=== PATIENT | male | born 1925 | race Caucasian/White ===

== ENCOUNTER 2016-10-26 15:23 | Outpatient (CLI) | payer MEDICARE, OTHER | END 2016-10-26 15:24 | LOC: LAB 15:23 | PROVIDERS: ATTEND Family Medicine | DX: R50.9 Fever, unspecified (principal) | CPT/HCPCS: 87400 ==

== ENCOUNTER 2016-11-15 17:48 | Emergency (ER) | payer MEDICARE, OTHER ==
[2016-11-15 18:25] LABS: APPEARANCE,URINE Clear (CLEAR); COLOR,URINE Amber (YELLOW); OCCULT BLOOD,URINE Trace-lysed (NEGATIVE); PH URINE 5.5 (5.0 - 8.0); UROBILINOGEN URINE 0.2 Eu (0.2-1.0)
[2016-11-15 18:37] LABS: MEAN CORPUSCULAR HEMOGLOBIN 30.8 pg (28.0-34.0)
[2016-11-15 18:38] LABS: eGFR (African) 15; eGFR (Non-African) 12
--- NOTE | 2016-11-15 18:42 | Diagnostic Imaging Report ---
[facility] [id number] [facility] [address] [address] Report Submission Date: Nov 15, 2016 6:40:[address] STENOGRAPHER Patient Study Name: BG TRAN Date: Nov 15, 2016 6:22:[address] STENOGRAPHER Modality Type: CR Gender: M Description: CHEST : [birth year] Institution: [facility] Physician: JAYRO BRADY (MEDICAL BILLING CODER) - ER Portable chest History: Dyspnea Findings: Low lung volumes and dense left lower lobe and lingular consolidation or collapse are observed. There is probably mild atelectasis at the medial right lung base. A left pleural effusion cannot be excluded. The cardiac silhouette is enlarged. Impression: 1. Low lung volumes. 2. Dense left basilar consolidation or collapse and possibly pleural effusion. 3. Cardiomegaly. 4. Probably mild atelectasis at the right lung base. Electronically signed on Nov 15, 2016 6:40:[address] STENOGRAPHER by: Kavin ZENG
[2016-11-15 18:52] LABS: MONOCYTES % 5 % (0-11); SEGMENTED NEUTROPHILS % 86 % (39-79)
--- NOTE | 2016-11-15 18:55 | ED Physician Documentation ---
General Adult - HISTORIAN Historian: patient - HPI Chief Complaint: General Adult Onset: other (unsure) Further Comments: yes (89 year old male patient sent in from [place] with altered LOC. Staff reported to EMS that patient had been "unresponsive for 2 days". On arrival RA sat 84%, duoneb given in route. On arrival to Er Sat 86% , placed on NRBM, HR 145 - ST, RR 40-44, BP - hypotensive. Fluid bolus started. ) - ROS CONST: recent illness, other (Patient unable to contribute to ROS due to critical illness and hypoxia) MS/SKIN/LYMPH: leg swelling (right) - PAST HX Past History: COPD, hypertension, other (anemia, Prostate CA, dementia, Venous insufficiency, COPD) Allergies/Adverse Reactions: Allergies Allergy/AdvReac Type Severity Reaction Status Date / Time No Known Drug Allergies Allergy Unverified 05/02/13 13:15 - SOCIAL HX Smoking History: non-smoker - FAMILY HX Family History: No - REVIEWED ASSESSMENTS Nursing Assessment Reviewed: Yes Vitals Reviewed: Yes Progress - Progress Progress: Call to DPOA - discussed hypotension and DNR status. At the time Arcelia (grand- daughter) states she does not want vasopressors. Explained critical condition of patient. Grand-daughter does not want transported to [place], [place] at this time. 1855 BP improved with 750cc of NS bolus infused, will continue 2nd liter. Patient pulling off his oxygen frequently, desats to 84% with no O2. Soft restraints applied. ABG Ph 7.37, PCo2 34, pO2 74, HCO3 19.7, BE -4.8,SaO2 94 on NRBM at 15L 1910 Grand-daughter at bedside - explained patient's critical status, recommended transfer to higher level of care if family wished to have aggressive care, offered admission at [facility] - explained prognosis was guarded due to sepsis. Grand-daughter rescinded DNR, would like patient transferred to [facility]. Explained grave prognosis, grand-daughter would like attempt at aggressive treatment. Lactic acid 4 day turn around, will defer to [facility]. [address] Kaye, orders received for antibiotics - Rocephin 1G and Vanc 2G IV. - EKG/XRAY/CT EKG: rhythm (ST, rate 133) ED Results Lab/Radiology - Lab Results Lab Results: Lab Results 11/15/16 11/15/1611/15/17 18:20 18:15 18:15 WBC RBC Hgb Hct MCV MCH MCHC RDW Plt Count Sodium 143 mmol/L mmol/L (136-145) Potassium 4.4 mmol/L mmol/L (3.5-5.0) Chloride 107 mmol/L mmol/L (98-110) Carbon Dioxide 22 mmol/L mmol/L (20-32) BUN 57 mg/dL H mg/dL (10-26) Creatinine 4.8 mg/dL H mg/dL (0.4-1.5) Est GFR ( Amer) 15 L (60 - ) Est GFR (Non-Af Amer) 12 L (60 - ) Glucose 214 mg/dL H mg/dL (70-99) Calcium 9.9 mg/dL mg/dL (8.5-10.5) Total Bilirubin 1.6 mg/dL H mg/dL (0.2-1.2) AST 16 U/L U/L (0-41) ALT 17 U/L U/L (0-45) Alkaline Phosphatase 65 U/L U/L (46-116) Creatine Kinase 52 U/L U/L (0-225) CK-MB (CK-2) 2.1 ng/mL ng/mL (0.0-5.6) Troponin I 0.04 ng/mL ng/mL (0.03-0.06) NT-Pro-B Natriuret Pep 3276.3 pg/mL H pg/mL (15.0-450.0) Total Protein 8.8 g/dL H g/dL (6.0-8.5) Albumin 4.5 g/dL g/dL (3.0-5.5) Urine Color Jyothi (YELLOW) Urine Appearance Clear (CLEAR) Urine pH 5.5 (5.0 - 8.0) Ur Specific [place] 1.015 (1.010-1.030) Urine Protein Negative mg/dL mg/dL (NEGATIVE) Urine Ketones Negative mg/dL mg/dL (NEGATIVE) Urine Occult Blood Trace-lysed (NEGATIVE) Urine Nitrite Negative (NEGATIVE) Urine Bilirubin Negative (NEGATIVE) Urine Urobilinogen 0.2 Eu Eu (0.2-1.0) Ur Leukocyte Esterase Negative (NEGATIVE) Urine Glucose Negative mg/dL mg/dL (NEGATIVE) 11/15/16 18:15 WBC 30.59 K/ul H K/ul (4.00-12.00) RBC 4.71 M/ul M/ul (3.90-5.20) Hgb 14.5 g/dL g/dL (12.0-18.0) Hct 43.8 % % (37.0-53.0) MCV 93.0 fl fl (80.0-100.0) MCH 30.8 pg pg (28.0-34.0) MCHC 33.1 g/dL g/dL (30.0-36.0) RDW 13.7 % % (11.3-14.3) Plt Count 242 K/mm3 K/mm3 (130-400) Sodium Potassium Chloride Carbon Dioxide BUN Creatinine Est GFR ( Amer) Est GFR (Non-Af Amer) Glucose Calcium Total Bilirubin AST ALT Alkaline Phosphatase Creatine Kinase CK-MB (CK-2) Troponin I NT-Pro-B Natriuret Pep Total Protein Albumin Urine Color Urine Appearance Urine pH Ur Specific [place] Urine Protein Urine Ketones Urine Occult Blood Urine Nitrite Urine Bilirubin Urine Urobilinogen Ur Leukocyte Esterase Urine Glucose - Radiology Radiology Impressions: Portable chest History: Dyspnea Findings: Low lung volumes and dense left lower lobe and lingular consolidation or collapse are observed. There is probably mild atelectasis at the medial right lung base. A left pleural effusion cannot be excluded. The cardiac silhouette is enlarged. Impression: 1. Low lung volumes. 2. Dense left basilar consolidation or collapse and possibly pleural effusion. 3. Cardiomegaly. 4. Probably mild atelectasis at the right lung base. - Orders Orders: ED Orders Category Date Time Status Continuous EKG monitoring Q30M Care 11/15/16 17:56 Active Continuous Pulse Oximetry Q30M Care 11/15/16 17:[address] Saline Lock/IV NOW Care 11/15/16 17:56 Active CHEST 1 VIEW [RAD] Stat Exams 11/15/16 17:56 Completed BLOOD CULTURE Stat Lab 11/15/16 Ordered BNP [NT-proBNP] Stat Lab 11/15/16 18:15 Completed CBC/PLATELET/DIFF Stat Lab 11/15/16 18:15 Completed CKMB Stat Lab 11/15/16 18:15 Completed CMP Stat Lab 11/15/16 18:15 Completed CREATINE KINASE Stat Lab 11/15/16 18:15 Completed TROPONIN I (cTnI) Stat Lab 11/15/16 18:15 Completed UA W/MICRO IF INDICATED Stat Lab 11/15/16 18:20 Completed Oxygen Daily Oxygen 11/15/16 18:00 Ordered EKG WITH COMPARISON Stat Ther 11/15/16 17:56 Ordered General Adult Physical Exam - PHYSICAL EXAM GENERAL APPEARANCE: severe distress EENT: eye inspection normal, MARY, dry mucous membranes RESPIRATORY: other (clear, deminished in bases. O2 at NRBM - Sat 93-94% on 100%) CVS: decreased pulse(s) (Right foot), other (unable to doppler DP or PT in left foot) ABDOMEN: soft, mass (RUQ and epigastric area), abnormal bowel sounds (hypoactive ), decreased BS, other (distended protuberant) BACK: normal inspection SKIN: warm/dry, pallor EXTREMITIES: non-tender, edema (Right leg with 3+ pitting edema, venous stasis noted. R>L) NEURO: other (MAEx4, opens eye to verbal and tactile stimuli, GCS: E3, V2, M5 = 10; will intermittently follow commands. ) Discharge Clincal Impression: Sepsis Qualifiers: Sepsis type: sepsis due to unspecified organism Qualified Code(s): A41.9 - Sepsis, unspecified organism Pneumonia Qualifiers: Pneumonia type: due to unspecified organism Laterality: left Lung location: lower lobe of lung Qualified Code(s): J18.1 - Lobar pneumonia, unspecified organism Acute renal failure Qualifiers: Acute renal failure type: unspecified Qualified Code(s): N17.9 - Acute kidney failure, unspecified Condition: Critical Disposition: 02 XFER SHT-TRM HOSP Decision to Admit: NO Decision Time: 19:10
[2016-11-15] MEDS ORDERED: 0.9 % SODIUM CHLORIDE 1,000 ML IV ONE (19:08)
[2016-11-15] MEDS: VANCOMYCIN HCL 1 GM in 0.9 % SODIUM CHLORIDE 250 ML IV ONE (20:15)
[2016-11-15] MEDS ORDERED: cefTRIAXone SODIUM 1 GM VIAL ONE (20:20)
[2016-11-15] MEDS ORDERED: 0.9 % SODIUM CHLORIDE 100 ML IV ONE (20:26)
[2016-11-15] MEDS: cefTRIAXone SODIUM 1 GM in 0.9 % SODIUM CHLORIDE 50 ML IV SCH (20:37)
[2016-11-15] MEDS: 0.9 % SODIUM CHLORIDE 1,000 ML IV ONE (20:38)
[2016-11-15 21:31] VITALS: BP 87/59
[2016-11-17 06:39] LABS: ABG PH 7.37 (7.35-7.45)
[2016-11-17 06:40] LABS: ABG BASE EXCESS -4.8 (-2 - +2)
== END 2016-11-15 21:10 | disposition short-term general hospital (02) ==
LOC: ED 17:48
DX: A41.9 Sepsis, unspecified organism (principal); J18.1 Lobar pneumonia, unspecified organism; N17.9 Acute kidney failure, unspecified
CPT/HCPCS: 36415; 36600; 71010; 80053; 81002; 82550; 82553; 82803; 83880; 84484; 85025; 93005; J0696; J3370; J7030; J7050; 96361; 96365; 96367; 99284; S1016